=== PATIENT | female | born 1975 | race African-American/Black ===

== ENCOUNTER 2019-02-07 02:31 | Inpatient (IN) | payer OTHER ==
[2019-02-07] MEDS ORDERED: Morphine 4 MG/ML VIAL ONE ×2 (03:06→04:56)
[2019-02-07] MEDS ORDERED: Ondansetron PF 4 MG/2 ML Vial ONE (03:07)
[2019-02-07 03:45] LABS: BHCG - Serum Negative (NEGATIVE); Pregs Control Background? CLEAR/WHITE (CLR/WHITE); Pregs Control Bar Appear? YES (CONTROL BAR)
[2019-02-07 03:50] LABS: #Basophils 0.1 thou/uL (0.0-0.2); #Lymphocytes 1.2 thou/uL (1.20-3.40); #Monocytes 0.5 thou/uL (0.11-0.59); #Neutrophils 14.8 thou/uL (1.40-6.50); %Basophils 0.3 % (0.0-1.0); %Eosinophils 0.2 % (0.0-10.0); %Lymphocytes 7.2 % (21.0-51.0); %Monocytes 3.2 % (0.0-10.0); %Neutrophils 89.1 % (42.0-75.0); Hemoglobin 8.7 g/dL (12.0-16.0); Mean Corpuscular HGB CONC 28.6 g/dL (32.0-36.0); Mean Corpuscular Hemoglobin 19.3 pg (27.0-31.0); Mean Corpuscular Volume 67.4 fL (78.0-98.0); Mean Platelet Volume 4.8 fL (7.4-10.4); Platelet Count 334 thou/uL (130-400); RBC Distribution Width 25.4 % (11.5-14.5); White Blood Cell (WBC) Count 16.7 thou/uL (4.8-10.8)
[2019-02-07 03:51] LABS: MDiff Complete? YES; Microcytosis SLIGHT = 6-15 cells (100X) (0-5/hpf); Platelet Morphology Comment Appears Adequate; Polychromasia SLIGHT = 2-3 cells (100X) (0-2/hpf); Target Cells SLIGHT = 2-5 cells (100X) (0-1/hpf)
[2019-02-07 04:00] LABS: ALT (SGPT) 18 U/L (8-55); AST (SGOT) 21 U/L (5-34); Albumin 3.9 g/dL (3.5-5.0); Alkaline Phosphatase 78 U/L (40-150); Anion Gap 15 mmol/L (10-20); BUN (Urea Nitrogen) 11 mg/dL (7.0-18.7); Bilirubin, Total 0.8 mg/dL (0.2-1.2); Calc. Creatinine Clearance 0 mL/min (70-130); Calcium 9.4 mg/dL (7.8-10.44); Carbon Dioxide 19 mmol/L (22-29); Chloride 105 mmol/L (98-107); Estimated GFR-MDRD Greater than 90; Globulin 3.7 g/dL (2.4-3.5); Glucose 112 mg/dL (70-105); Lipase 14 U/L (8-78); Potassium 3.7 mmol/L (3.5-5.1); Protein, Total 7.6 g/dL (6.0-8.3); Sodium 135 mmol/L (136-145)
[2019-02-07] MEDS ORDERED: Piperacillin/Tazobactam 3.375 GM VIAL ONE (04:21)
[2019-02-07 05:44] LABS: Bilirubin Negative (Negative); Blood, Urine Negative (Negative); Clarity CLEAR (Clear); Glucose, Urine (Dipstick) Negative (Negative); Leukocyte Negative (Negative); Nitrite Negative (Negative); Protein, Urine (Dipstick) Negative (Neg-Trace); pH, Urine 6.5 (5.0-9.0)
[2019-02-07 05:54] LABS: Specific Gravity, Urine Greater than 1.060 (1.002-1.036)
--- NOTE | 2019-02-07 06:53 | CT ---
CT ABDOMEN AND PELVIS WITH IV CONTRAST: COMPARISON: 09/03/2011. INDICATION: Abdominal pain wit nausea and vomiting. FINDINGS: Basilar atelectasis is seen. There is cholelithiasis. Gallbladder is moderately distended. There i s an indeterminate 1.3 cm nodule of the left adrenal gland. A large right adnexal cyst is present, m easuring 4.7 cm. The bowel is incompletely evaluated without enteric contrast. There is mild promin ence of the uterus which demonstrates heterogeneous density, nonspecific. Aorta is normal caliber. No free air. Trace free pelvic fluid is present. No acute osseous pathology. There is punctate hyp oattenuation of the liver, too small to further characterize. IMPRESSION: 1. Cholelithiasis with moderate gallbladder distention. 2. Large right adnexal cyst. Given size, dedicated pelvic ultrasound is warranted. 3. Indeterminate left adrenal nodule. Followup with nonemergent adrenal mass protocol limited CT ab domen is recommended, as this finding cannot be confirmed as a benign adenoma on the basis of this ex am. CODE T POS: [facility]
--- NOTE | 2019-02-07 07:01 | ULT ---
ABDOMINAL ULTRASOUND: INDICATION: Abdominal pain, nausea, and vomiting. TECHNIQUE: Jackson-scale ultrasound evaluation of the liver, gallbladder, spleen, pancreas, common bile duct, kidne ys, abdominal aorta, and inferior vena cava (IVC). FINDINGS: There is evidence of cholelithiasis at the level of the gallbladder neck, nonmobile, as reported by s onographer. There is resultant moderate distention of the gallbladder. Prominence size of the liver with increased echogenicity. The common duct measures 4 mm within normal limits. The pancreas is p artially obscured from view limiting its assessment. There is no hydronephrosis involving either kid rafi. No significant ascites visualized. There is no focal abnormality of the spleen evident. IMPRESSION: 1. Cholelithiasis with gallbladder distention. No significant gallbladder wall thickening. Correla te with physical exam to exclude acute pain referable to the gallbladder. 2. Increased echogenicity of the hepatic parenchyma which can be seen in the setting of hepatic stea tosis. This may be further assessed with liver function enzymes. POS: [facility]
[2019-02-07] MEDS ORDERED: Ketorolac Tromethamine 30 MG/ML VIAL ONE (07:02)
[2019-02-07 07:27] LABS: Lactic Acid 2.5 mmol/L (0.5-2.2)
[2019-02-07] MEDS ORDERED: Ondansetron PF 4 MG/2 ML Vial IVP PRN ×2 (09:28→14:18)
[2019-02-07] MEDS ORDERED: Morphine 4 MG/ML VIAL IV PRN (09:28)
[2019-02-07] MEDS ORDERED: Ketorolac Tromethamine 30 MG/ML VIAL IVP PRN (09:29)
[2019-02-07] MEDS ORDERED: Sodium Chloride 0.9% 1,000 ML IV SCH (09:30)
[2019-02-07] MEDS ORDERED: ISOVUE-370 76%-LOCM 1 ML ONE (10:24)
--- NOTE | 2019-02-07 13:39 | HP ---
CHIEF COMPLAINT: Right upper quadrant pain. HISTORY OF PRESENT ILLNESS: This is a 43-year-old female who presents with a history of cholecystitis pain for 2-3 days, associated with nausea and vomiting. Pain described as 9/10 in the epigastric and right upper quadrant, radiates around to her right back. Ultrasound in the emergency room reveals a large stone in the neck of her gallbladder. Her liver function tests are normal. She notes previous symptoms similar, although not as severe. No history of jaundice or pancreatitis. PAST MEDICAL HISTORY: Include psoriasis. PAST SURGICAL HISTORY: She denies. MEDICINES: Singulair. ALLERGIES: PROCHLORPERAZINE. SOCIAL HISTORY: No smoking, alcohol or other drugs. REVIEW OF SYSTEMS: 10-system review of systems is otherwise negative unless described above. PHYSICAL EXAMINATION: VITAL SIGNS: Blood pressure is 111/73, pulse 66, respirations 18, temperature 98.2. HEENT: Sclerae anicteric. Oropharynx clear. NECK: No lymphadenopathy. CHEST: Clear. HEART: Regular rate and rhythm. ABDOMEN: Soft, tender in the right upper quadrant with localized guarding or rebound. No abdominal hernias. EXTREMITIES: No ischemia or edema to extremities. LABORATORY DATA: White blood cell count 16, hemoglobin 8.7, platelet count is 334, creatinine 0.78. Liver function tests normal. Ultrasound shows cholecystitis, normal common bile duct. ASSESSMENT: Acute cholecystitis. PLAN: Laparoscopic cholecystectomy. Risks, benefits, and alternatives were discussed, she gives consent, we will do this tomorrow. Job ID: [id number]
[2019-02-07] MEDS ORDERED: Calcium Carbonate 500 MG ChewTAB PO PRN (14:18)
[2019-02-07] MEDS ORDERED: hydrALAZINE 20 MG/ML VIAL SLOW IVP PRN (14:18)
[2019-02-07] MEDS ORDERED: Mag-Al 1200 mg/1200 mg/30 ML UDCUP PO PRN (14:18)
[2019-02-07] MEDS ORDERED: Morphine 4 MG/ML VIAL SLOW IVP PRN (14:18)
[2019-02-07] MEDS ORDERED: Promethazine HCl 25 MG/ML VIAL IM PRN (14:18)
[2019-02-07] MEDS ORDERED: HYDROcodone/Acetaminophen 10/325 mg Tablet PO PRN (14:18)
[2019-02-07] MEDS ORDERED: Dextrose 5% in Water 1,000 ML IV PRN (14:18)
[2019-02-07] MEDS ORDERED: Dextrose 50% Abboject 50 ML SYRINGE SLOW IVP PRN (14:18)
[2019-02-07] MEDS ORDERED: cefOXitin Sodium/Dextrose,Iso 2 GM in Premix Bag 1 BAG IVPB SCH (14:30)
[2019-02-07] MEDS ORDERED: cefOXitin 2 GM in Sodium Chloride 0.9% 100 ML IVPB SCH (14:30)
[2019-02-07] MEDS: D5 1/2 NS w/20 mEq KCL 1,000 ML IV SCH ×2 (14:54→21:52)
[2019-02-07 15:25] VITALS: BMI 38.9
[2019-02-07] MEDS: Famotidine/PF 20 mg/2ml Vial SLOW IVP SCH (20:34)
[2019-02-07] MEDS: Famotidine 20 MG TAB PO SCH (20:35)
[2019-02-07] MEDS: Ketorolac Tromethamine 30 MG/ML VIAL IVP PRN (20:38)
[2019-02-07] MEDS: cefOXitin Sodium/Dextrose,Iso 2 GM in Premix Bag 1 BAG IVPB SCH (21:52)
[2019-02-08] MEDS: Morphine 4 MG/ML VIAL SLOW IVP PRN ×2 (00:13→08:51)
[2019-02-08] MEDS: Ketorolac Tromethamine 30 MG/ML VIAL IVP PRN ×2 (04:44→11:06)
[2019-02-08] MEDS: cefOXitin Sodium/Dextrose,Iso 2 GM in Premix Bag 1 BAG IVPB SCH (06:37)
[2019-02-08] MEDS: D5 1/2 NS w/20 mEq KCL 1,000 ML IV SCH (06:40)
[2019-02-08] MEDS: Famotidine/PF 20 mg/2ml Vial SLOW IVP SCH ×2 (08:51→20:13)
[2019-02-08] MEDS: Famotidine 20 MG TAB PO SCH ×2 (10:04→20:12)
[2019-02-08] MEDS ORDERED: Morphine 2 MG/ML SYRINGE ONE (12:40)
[2019-02-08] MEDS ORDERED: Bupivacaine/Epinephrine 0.25% 30 ML VIAL ONE (13:06)
[2019-02-08] MEDS ORDERED: Fentanyl 100 MCG/2 ML VIAL ONE ×3 (13:12→15:05)
[2019-02-08] MEDS ORDERED: HYDROcodone/Acetaminophen 10/325 mg Tablet PO PRN (13:35)
[2019-02-08] MEDS ORDERED: Promethazine HCl 25 MG/ML VIAL IM PRN (13:35)
[2019-02-08] MEDS ORDERED: Mag-Al 1200 mg/1200 mg/30 ML UDCUP PO PRN (13:35)
[2019-02-08] MEDS ORDERED: hydrALAZINE 20 MG/ML VIAL SLOW IVP PRN (13:35)
[2019-02-08] MEDS ORDERED: Dextrose 5% in Water 1,000 ML IV PRN (13:35)
[2019-02-08] MEDS ORDERED: Calcium Carbonate 500 MG ChewTAB PO PRN (13:35)
[2019-02-08] MEDS ORDERED: Morphine 4 MG/ML VIAL SLOW IVP PRN ×2 (13:35)
[2019-02-08] MEDS ORDERED: Ondansetron PF 4 MG/2 ML Vial IVP PRN (13:35)
[2019-02-08] MEDS ORDERED: Dextrose 50% Abboject 50 ML SYRINGE SLOW IVP PRN (13:35)
[2019-02-08] MEDS: Sodium Chloride 0.9% 1,000 ML IV SCH (14:13)
[2019-02-08] MEDS ORDERED: Ketorolac Tromethamine 30 MG/ML VIAL ONE (14:40)
[2019-02-08] MEDS ORDERED: Ondansetron PF 4 MG/2 ML Vial ONE (16:04)
[2019-02-08] MEDS ORDERED: Rocuronium Bromide 10 MG/ML (10ML VIAL) ONE (16:04)
[2019-02-08] MEDS ORDERED: Lidocaine 1% PF 5 ML VIAL ONE (16:04)
[2019-02-08] MEDS ORDERED: Glycopyrrolate 0.2 MG/ML 5 ML SYRINGE ONE (16:04)
[2019-02-08] MEDS ORDERED: PROPOFOL 200 MG/20 ML VIAL ONE (16:04)
[2019-02-08] MEDS: HYDROcodone/Acetaminophen 10/325 mg Tablet PO PRN ×2 (16:40→22:35)
--- NOTE | 2019-02-08 21:12 | OP ---
DATE OF PROCEDURE: 02/08/2019 PREOPERATIVE DIAGNOSIS: Acute cholecystitis. POSTOPERATIVE DIAGNOSIS: Acute cholecystitis. PROCEDURE PERFORMED: Laparoscopic cholecystectomy. ANESTHESIA: General. ESTIMATED BLOOD LOSS: Minimal. COMPLICATIONS: None. SPECIMEN: Gallbladder. FINDINGS: Cholecystitis. PROCEDURE IN DETAIL: The patient was taken to the operating room and laid supine on the operating room table. After general anesthetic was obtained, the abdomen was prepped and draped in a sterile fashion. A curved incision was made below the umbilicus. Cautery was used to dissect down to the umbilical fascia. Umbilical fascia was incised and held up using a Adam. The abdominal cavity was entered using a Mami clamp. Holding stitch of Vicryl was placed on each side of the fascia. Coello trocar was placed. High-flow pneumoperitoneum was obtained. An upper midline 5 mm port and 2 right upper quadrant 5 mm ports were placed under direct camera visualization. The gallbladder was retracted from the gallbladder fossa. The peritoneum of the gallbladder was opened anteriorly and posteriorly. The critical view triangle was seen showing only the cystic duct and cystic artery branching from medial to lateral. There were no other branching structures. Two clips were placed proximally on the cystic duct and one laterally. It was cut using laparoscopic scissors. The cystic artery was taken in the same way. Electrocautery was then used to dissect the gallbladder out of the gallbladder fossa. The gallbladder was placed in an Endo catch bag and brought out through the Coello. There was no bleeding or bile in the liver bed. The cystic duct stump and cystic artery stump were intact, without evidence of extravasation or bleeding. All port sites were infiltrated using local anesthesia. All ports were removed under camera visualization. Pneumoperitoneum was let down. The Vicryl was used to close the fascial defect below the umbilicus. All incisions were irrigated and closed using 4-0 Monocryl and Dermabond. The patient was en route to Recovery in stable condition. All instrument counts, needle counts and lap counts were correct. Job ID: [id number]
[2019-02-09] MEDS: Sodium Chloride 0.9% 1,000 ML IV SCH (04:26)
[2019-02-09] MEDS: Famotidine 20 MG TAB PO SCH (09:18)
[2019-02-09] MEDS: HYDROcodone/Acetaminophen 10/325 mg Tablet PO PRN (09:18)
[2019-02-09] MEDS: Famotidine/PF 20 mg/2ml Vial SLOW IVP SCH (09:58)
[2019-02-09 13:04] VITALS: BP 116/72; TEMP 98.2
== END 2019-02-09 12:55 | disposition home or self-care (01) | DRG 419 ==
LOC: ERS 02:31 → OBSVTOIN 08:58 → SJJU 08:58
PROVIDERS: ADMIT Surgery; ATTEND Surgery
PROC: 0FT44ZZ Resection of Gallbladder, Percutaneous Endoscopic Approach (ICD-10-PCS; principal; 2019-02-08)
DX: K80.00 Calculus of gallbladder with acute cholecystitis without obstruction (principal); L40.9 Psoriasis, unspecified; Z79.899 Other long term (current) drug therapy; Z88.8 Allergy status to other drugs, medicaments and biological substances; Z98.890 Other specified postprocedural states
CPT/HCPCS: 36415; 74177; 76700; 80053; 81003; 83605; 83690; 84484; 84703; 85025; 88304; 96365; 96375; 96376; J0694; J1885; J2001; J2270; J2405; J2543; J2704; J3010; J3490; Q9966; S0028

== ENCOUNTER 2019-05-09 16:42 | Emergency (ER) | payer OTHER ==
[~2019-05-09 16:42] MED LIST: ISOVUE-370 76%-LOCM 1 ML ONE
[2019-05-09 18:08] LABS: #Eosinphils 0.2 thou/uL (0.0-0.7); #Lymphocytes 2.9 thou/uL (1.20-3.40); #Monocytes 0.5 thou/uL (0.11-0.59); #Neutrophils 4.7 thou/uL (1.40-6.50); %Basophils 0.4 % (0.0-1.0); %Eosinophils 2.7 % (0.0-10.0); %Lymphocytes 34.8 % (21.0-51.0); %Monocytes 5.8 % (0.0-10.0); %Neutrophils 56.3 % (42.0-75.0); Hemoglobin 9.1 g/dL (12.0-16.0); Mean Corpuscular HGB CONC 29.5 g/dL (32.0-36.0); Mean Corpuscular Hemoglobin 21.5 pg (27.0-31.0); RBC Distribution Width 16.5 % (11.5-14.5); Red Blood Cell (RBC) Count 4.25 mill/uL (4.20-5.40); White Blood Cell (WBC) Count 8.4 thou/uL (4.8-10.8)
[2019-05-09 18:24] LABS: ALT (SGPT) 10 U/L (8-55); AST (SGOT) 21 U/L (5-34); Alkaline Phosphatase 91 U/L (40-150); Anion Gap 13 mmol/L (10-20); BUN (Urea Nitrogen) 7 mg/dL (7.0-18.7); Bilirubin, Total 0.5 mg/dL (0.2-1.2); Calc. Creatinine Clearance 0 mL/min (70-130); Calcium 9.5 mg/dL (7.8-10.44); Carbon Dioxide 20 mmol/L (22-29); Chloride 107 mmol/L (98-107); Estimated GFR-MDRD Greater than 90; Globulin 3.6 g/dL (2.4-3.5); Glucose 103 mg/dL (70-105); Potassium 4.2 mmol/L (3.5-5.1); Protein, Total 7.6 g/dL (6.0-8.3); Sodium 136 mmol/L (136-145)
[2019-05-09 18:27] LABS: Hypochromia SLIGHT = 6-15 cells (100X) (0-5/hpf); MDiff Complete? YES; Microcytosis SLIGHT = 6-15 cells (100X) (0-5/hpf); Ovalocytes SLIGHT = 2-5 cells (100X) (0-1/hpf); Platelet Clumps MODERATE; Platelet Morphology Comment PLT clumps seen-LOW; Polychromasia SLIGHT = 2-3 cells (100X) (0-2/hpf); Target Cells SLIGHT = 2-5 cells (100X) (0-1/hpf); Tear Drops SLIGHT = 2-5 cells (100X) (0-1/hpf)
[2019-05-09 19:00] LABS: CK (CPK) 171 U/L (29-168); Lipase 21 U/L (8-78)
[2019-05-09] MEDS ORDERED: Metoclopramide HCl 10 MG/2 ML VIAL ONE (20:58)
--- NOTE | 2019-05-09 21:40 | CT ---
CTA CHEST WITH CONTRAST WITH MULTIPLANAR RECONSTRUCTION AND 3D POSTPROCESSING: Date: 05/09/19 INDICATION: Dyspnea. Elevated D-Dimer. Assess for pulmonary embolus. FINDINGS: Pulmonary arteries show adequate enhancement. No evidence of pulmonary embolus identified. Lung encarnacion show no evidence of infiltrate or effusion. Mediastinum unremarkable. Thoracic aorta is unremarkable. Images through upper abdomen reveal a nonspecific left adrenal nodule which measures 1.5 cm. This was described on recent CT abdomen of 02/07/19 and is unchanged. IMPRESSION: 1. No evidence of pulmonary embolus. 2. No acute lung process. 3. Left adrenal nodule again noted. POS: [facility]
== END 2019-05-09 22:08 | disposition home or self-care (01) ==
LOC: ERS 16:42
DX: D64.9 Anemia, unspecified (principal); Z79.899 Other long term (current) drug therapy
CPT/HCPCS: 36415; 71275; 80053; 82550; 83690; 84484; 85025; 85379; 86850; 86900; 86901; 93005; 96361; 96365; J2765; Q9966